=== PATIENT | female | born 1995 | race Caucasian/White ===

== ENCOUNTER → 2021-02-28 15:05 | Outpatient (CLI) | payer OTHER, SELFPAY ==
--- NOTE | ~2021-02-28 | US_ITS ---
EXAMINATION: US transvaginal DATE: 02/28/2021 15:26 INDICATION: Vaginal spotting Comparison:No prior studies for comparison. TECHNIQUE: Multiple endovaginal sonographic images of the pelvis performed. FINDINGS: The uterus measures 6.1 x 3.3 x 3.1 cm. The endometrial complex measures 4.9 mm. The right ovary measures 1.3 x 1.2 x 1.1 cm and the left ovary measures 6.2 x 5 x 7 cm. There is a 5. 7 x 6.4 x 4.5 cm left ovarian cyst. There are small follicles in each ovary. Normal doppler signal in both ovaries. There is no free fluid in the pelvis. There are no abnormal masses seen on either side. IMPRESSION: 1. Left ovarian cyst measuring 6.4 cm. Reviewed, dictated and finalized at location B.
== END ==
PROVIDERS: Visit Provider Nurse Practitioner
DX: N93.8 Other specified abnormal uterine and vaginal bleeding (principal); N83.202 Unspecified ovarian cyst, left side
CPT/HCPCS: 76830

== ENCOUNTER 2021-04-12 14:48 | Outpatient (CLI) | payer OTHER, SELFPAY ==
--- NOTE | ~2021-04-12 | US_ITS ---
EXAMINATION: US transvaginal EXAM DATE: 04/12/2021 15:14 INDICATION: Left ovarian cyst . TECHNIQUE: Pelvic transvaginal sonogram was performed. There are multiple grayscale and Doppler imag es available for interpretation. Comparison is made to prior examination from 02/28/2021. FINDINGS: Uterus measures 5.8 x 3.5 x 3.5 cm, and is morphologically normal. Endometrial stripe lamberto sures 5 mm, within normal limits. There is no free pelvic fluid. Right adnexa: The ovary measures 2.2 x 2.0 x 2.5 cm and is morphologically normal. Ovarian vascular f low confirmed. Left adnexa: The ovary measures 6.5 x 4.6 x 7.0 cm, with an anechoic simple cystic-appearing lesion m easuring 5.7 x 4.1 x 6.2 cm, could be the same lesion on prior examination in February. Typically physio logic or hemorrhagic cyst would have involuted. No complexity to suggest malignancy, or internal inte rnal debris typically seen with endometrioma, or fishnet septae typically seen with hemorrhagic cyst. If this persists, could be peritoneal inclusion cyst, but can't exclude benign ovarian neoplasm. Con assistant professor of german additional 6 week follow-up pelvic sonogram. Ovarian vascular flow confirmed. IMPRESSION: Persistent simple cystic appearing left ovarian lesion; consider additional 6 week follow -up pelvic sonogram. Reviewed, dictated and finalized at location A. IMPRESSION: Persistent simple cystic appearing left ovarian lesion; consider ad ditional 6 week follow-up pelvic sonogram.
== END 2021-04-12 14:49 ==
PROVIDERS: Visit Provider Obstetrics & Gynecology Gynecology
DX: N83.202 Unspecified ovarian cyst, left side (principal)
CPT/HCPCS: 76830

== ENCOUNTER 2022-03-02 13:49 | Outpatient (CLI) | payer OTHER, SELFPAY ==
--- NOTE | ~2022-03-02 | US_ITS ---
EXAMINATION: US transvaginal DATE: 03/02/2022 14:24 INDICATION: Ovarian cyst TECHNIQUE: Multiple endovaginal sonographic images of the pelvis were obtained. COMPARISON: None. FINDINGS: The uterus measures 6.2 x 3.5 x 3.6 cm. The endometrial complex measures 5 mm. The right ov burke is not visualized however no right adnexal abnormality is seen. The left ovary measures 3.2 x 2.6 x 2.8 cm. There is a 7.2 x 4.0 x 5.5 cm simple cystic lesion of the left adnexa without significant change. There is normal vascular flow in the left ovary. There is no free fluid in the pelvis. IMPRESSION: 1. 7.2 cm left adnexal cyst without significant change. Reviewed, dictated and finalized at location F.
== END 2022-03-02 13:50 ==
PROVIDERS: PCP Nurse Practitioner; Visit Provider Nurse Practitioner
DX: N83.202 Unspecified ovarian cyst, left side (principal)
CPT/HCPCS: 76830

== ENCOUNTER 2022-07-03 12:54 | Outpatient (CLI) | payer OTHER, SELFPAY ==
--- NOTE | ~2022-07-03 | US_ITS ---
EXAMINATION: US transvaginal DATE: 07/03/2022 13:18 INDICATION: Ovarian cyst. TECHNIQUE: Multiple transvaginal sonographic images of the pelvis were obtained. COMPARISON: None. FINDINGS: The uterus measures 6.4 x 3.5 x 4.6 cm. There is no free fluid in the pelvis. The endometrial complex measures 4 mm in thickness. The right ovary measures 3.1 x 2.2 x 3.0 cm. The left ovary measures 2.5 x 2.1 x 2.4 cm. There is a cystic mass in the left adnexa measuring 6.3 x 5.6 x 3.8 cm with peripher al 7 mm nodule without internal vascular flow. IMPRESSION: 1. 6.3 cm cystic mass with peripheral 7 mm nodule in the left adnexa suspicious for neoplasm. Conside r surgical evaluation. Reviewed, dictated and finalized at location A. IMPRESSION: 1. 6.3 cm cystic mass with peripheral 7 mm nodule in the left adnexa suspicious for neoplasm. Consider surgical evaluation.
== END 2022-07-03 12:55 ==
PROVIDERS: PCP Obstetrics & Gynecology Gynecology; Visit Provider Obstetrics & Gynecology Gynecology
DX: N83.209 Unspecified ovarian cyst, unspecified side (principal)
CPT/HCPCS: 76830

== ENCOUNTER 2022-07-24 01:26 | Day surgery (SDC) | payer OTHER, SELFPAY ==
[2022-07-19 14:05] VITALS: BMI 44.0
--- NOTE | 2022-07-19 14:24 | PC.NURSE ---
Report to the Outpatient Waiting Room, entrance under the green pavilion located off [facility], at time _0830__ on date _07/24/22_. OR Time: _1030 . Time changes happen often and if your time is changed the preop area will call you the afternoon before. - You and your visitor will be asked to self-screen and do not enter if you have any COVID symptoms. - Only one visitor and NO children visitors are allowed at this time. - The patient visitor is requested to leave or wait in car when not with patient due to restrictions. - A mask is required within the hospital. Patients may have clear liquids (water, carbonated beverages, clear teas, apple juice) until 3 hours prior to surgery with a maximum of 20 ounces. - No food from midnight until time of surgery - Take the following medications with a SIP of water the morning of surgery: WELLBUTRIN Medications to discontinue per physician N/A Date to take last dose___N/A Please no make-up, nail serbian, hairspray, perfume, deodorant, or body powder the day of surgery. No jewelry (including any body piercings) or valuables the day of surgery, leave them at home. Please take a shower or bath the night before, or the morning of, surgery with an antibacterial soap. Wear comfortable, loose fitting clothing. - Jewelry must be removed prior to entering the operating room. Rings and piercings that are not removed may be cut off. - The hospital will not accept responsibility for valuables. - Please leave all valuables, including medications, at home the day of surgery. If you are going home after surgery, a licensed utility driver must drive you home. - NO public transportation without another adult. - We recommend that an adult stay with you for 24 hours following discharge. - We also recommend that you do not drive, make important decision, drink alcoholic beverages, or take any drugs that were not prescribed by your health care provider for at least 24 hours after your discharge time. Follow any additional instructions given to you from your surgeon. If you or anyone in your household have experienced Covid symptoms in the past week, please notify your surgeon or the nurse liaison at the phone number below for possible testing. Telephone instructions given to __EMETERIOE and asked if any additional questions and then verbalized understanding. Patient advised to call surgeon office or pre surgery nurse liaison [phone] if any additional questions.
[2022-07-24] VITALS (8 sets, daily range): BP systolic 115–136; BP diastolic 62–81; PULSE 75–112; RESP 16–20; TEMP 36.4–37.1; O2SAT 98–100; BMI 49.5
--- NOTE | 2022-07-24 07:28 | P.HP_ITS ---
History of Present Illness History of Present Illness Consent: Risks, benefits, and alternatives have been discussed and questions answered. Patient agrees to proceed with procedure. Chief complaint: Lt Ovarian Persistant Cyst Narrative: Emmie Rocha is a 27 year old female with a persistent large left ovarian cyst. Initial ultrasound February of 2021 showed a 6.4cm simple ovarian cyst. This has been followed over time and remained 6cm. There was a new finding on the June 26 ultrasound showing a peripheral nodule measuring 7mm. Tumor markers CA 125, CA 19-9, and CEA are all normal. Options were reviewed with the patient and she has elected to proceed with laparoscopic management. The plan is to proceed with laparoscopic evaluation and then determine further plan. Possible incision and drainage, wall biopsy, cystectomy, or salpingo-oophorecto my. Patient voices understanding and agrees to proceed. Risks of infection, bleeding, injury to internal organs, and general anesthesia reviewed. Possible pathology was also discussed. Review of Systems Review of Systems: not repeated day of surgery; patient states no changes in status PMFSH Past Medical History Medical History (Updated 07/24/22 @ 07:33 by Rosario Middleton MD) Anxiety Depression Social History Social History Substance use: never Substance use type: marijuana Living arrangements: alone Spiritual care concerns: No Meds Home Medications and Allergies Home Medications Medication Instructions Recorded Confirmed Type Control Pill 1 tab-cap PO DAILY 07/19/22 07/19/22 History bupropion HCl 150 mg 24 hr tablet, 150 mg PO DAILY 07/19/22 07/19/22 History extended release escitalopram oxalate 20 mg tablet 20 mg PO DAILY 07/19/22 07/19/22 History hydroxyzine pamoate 25 mg capsule 25 mg PO DAILY 07/19/22 07/19/22 History Allergies Allergy/AdvReac Type Severity Reaction Status Date / Time No Known Allergies Allergy Unverified 07/19/22 14:21 Exam Const: General: healthy appearing and alert Orientation/consciousness: p atient oriented x3 Resp: Effort & Inspection: normal respiratory effort GI: GI Palp: Yes Soft to palpation, No Tenderness to palpation present (GI) and No Palpable mass present : External Female Exam: normal external appearance Speculum Exam - Vagina: normal appearance of the vagina and normal vaginal discharge Speculum Exam - Cervix: normal appearance of the cervix Bimanual exam- vagina & uterus: uterine size normal and consistency normal Bimanual Exam- Adnexa, other: tender (Mild left tenderness) Neuro: General: patient oriented x3 Assessment and Plan Assessment and plan (1) Left ovarian cyst: Code(s): N83.202 - Unspecified ovarian cyst, left side Status: Acute Assessment and Plan: Plan to proceed with laparoscopic management
--- NOTE | 2022-07-24 07:28 | WPDHPUPDATE1 ---
History and Physical Update Update Date/Time: 07/24/22 07:28 History and Physical has been reviewed, including an updated exam of the patient. There are NO changes in the patient's condition. Risks, benefits, and alternatives have been discussed and questions answered. Patient agrees to proceed with procedure.
[2022-07-24] MEDS: LACTATED RINGERS 1,000 ML 30 ML IV CONT (08:55)
[2022-07-24] MEDS: ACETAMINOPHEN 500 MG TABLET 1000 MG PO (09:01)
[2022-07-24] MEDS: KETOROLAC 15 MG/ML VIAL (*BKC) IV PUSH (09:02)
--- NOTE | 2022-07-24 09:26 | P.PNAN_ITS ---
Anes - Initial Pre Proc Eval Procedure: Operation Date: 07/24/22 10:30 Proposed Procedures p Laparoscopic Management Left Ovarian Cyst, Possible Left Salpingo-oophorectomy - Rosario Middleton MD Date/Time: 07/24/22 09:26 Surgeon: Rosario Middleton MD Pre Op Diagnosis: Lt Ovarian Persistant Cyst Patient Data Age: 27 Gender: F Height: 1.65 m Weight: 135 kg Last Vital Signs Temp 37.1 C 07/24/22 08:30 Pulse 91 07/24/22 08:30 Resp 16 07/24/22 08:30 BP 136/81 07/24/22 08:30 Pulse Ox 100 07/24/22 08:30 O2 Del Method Room Air 07/24/22 08:30 Allergies Allergy/AdvReac Type Severity Reaction Status Date / Time No Known Allergies Allergy Verified 07/24/22 08:36 Home Medications Medication Instructions Recorded Confirmed Type Control Pill 1 tab-cap PO DAILY 07/19/22 07/19/22 History bupropion HCl 150 mg 24 hr tablet, 150 mg PO DAILY 07/19/22 07/24/22 History extended release escitalopram oxalate 20 mg tablet 20 mg PO DAILY 07/19/22 07/19/22 History hydroxyzine pamoate 25 mg capsule 25 mg PO DAILY 07/19/22 07/19/22 History Patient hx anesthesia problems: none Family hx anesthesia problems: none Results Review: All pre-operative results and documents have been reviewed as part of the pre- operative evaluation. [facility] Past Medical History Medical History (Updated 07/24/22 @ 09:27 by Fernie Angeles MD) Anxiety Depression Morbid obesity Ovarian cyst Social History Social History Substance use: never Substance use type: marijuana Living arrangements: alone Spiritual care concerns: No Anes - Eval Final PreProcedure Day of Procedure 07/24/22 09:26 Patient weight: morbidly obese Heart: regular rate and rhythm Lungs: clear to auscultation Neurological: alert and oriented Last oral intake: >/= 8 hours ASA classification: III Emergent: no Anesthetic plan: proceed Anesthesia type and monitoring: general ETT and standard monitoring Results Review: All pre-operative results and documents have been reviewed as part of the pre- operative evaluation. Informed Consent: The patient's anesthetic plan and its attendant risks and benefits were discussed with the patient/family/POA. Questions were solicited and answers provided to the satisfaction of the patient/family/POA.
--- NOTE | 2022-07-24 10:55 | W.PM.PROC2 ---
Procedure Note - Detailed Date of Procedure 07/24/22 Pre-op Diagnosis Lt Ovarian Persistant Cyst Post-op Diagnosis Other (7Cm left tubal cyst) Procedure Performed laparoscopic incision and drainage of left tubal cyst with biopsy of cyst wall Surgeon Rosario Middleton MD Anesthesia General Findings normal-appearing uterus, ovaries, and right tube; left tube stretched and very adherent to the left tubal cyst; cyst containing straw-colored fluid Description of Procedure The patient was taken to the operating room and placed under anesthesia in the dorsal lithotomy position. She was prepped and draped in the usual sterile fashion. [place] speculum was placed in the vagina and the cervix grasped on the anterior lip with a tenaculum. The acorn manipulator was placed and the speculum removed. Bladder previously drained by the staff. attention is then turned to the abdomen where a vertical skin incision was made at the base of the umbilicus. The abdomen is tented and the Veress needle placed. Water drop test is normal and opening patient pressure was 4mmHg. The pneumoperitoneum was obtained using CO2 to a patient pressure of 15. The Veress needle was removed and the long 5mm trocar was placed. Intra-abdominal placement was confirmed with the laparoscope. The patient is placed in Trendelenburg and a 5mm skin incision made above the symphysis pubis in the midline. A 5mm trocar is placed. The blunt probe was used to investigate the pelvis with the above-stated findings. Due to the very stretched and densely adherent nature of the left tube, decision was made to incise and drain the cyst and remove a piece of the wall to attempt to retain tubal function. A 2nd 5mm trocar is placed in the right lower quadrant under direct visualization. The atraumatic grasper is used to hold the cyst in place. The LigaSure hook is used to enter the cyst on the opposite side of the tube. The cyst is drained of clear fluid. The incision was extended approximately 5cm. A [id number] sqare of the cyst wall is excised using the LigaSure device. Good hemostasis is noted. The clear fluid is removed from the cul-de-sac using manual suction device. The instruments are removed and the pneumoperitoneum was reduced. Skin incisions were closed using 4 0 nylon in interrupted fashion. Sponge, needle, and instrument counts are correct per the OR staff. The patient is awakened from anesthesia and taken to recovery in stable condition. Estimated Blood Loss 5 Drains No Packing No Pathology Yes ( Tubal cyst wall biopsy) Complications No immediate complications Condition Stable Disposition PACU
[2022-07-24] MEDS: fentaNYL CITRATE INJ (*CRX) 100 MCG/2 ML VIAL 25 MCG IV PUSH ×4 (11:27→11:57)
[2022-07-24] MEDS: oxyCODONE HCL (*CRX) 5 MG TAB IR PO (12:30)
== END 2022-07-24 12:45 | disposition home or self-care (01) ==
PROVIDERS: Visit Provider Obstetrics & Gynecology Gynecology
PROC: (CPT 49320; principal; 2022-07-24 10:30)
DX: N83.8 Other noninflammatory disorders of ovary, fallopian tube and broad ligament (principal); F41.9 Anxiety disorder, unspecified; F32.A Depression, unspecified; E66.01 Morbid (severe) obesity due to excess calories; Z68.42 Body mass index [BMI] 45.0-49.9, adult; F12.90 Cannabis use, unspecified, uncomplicated
CPT/HCPCS: 58662; 88305; A9270; J0330; J1100; J1885; J2250; J2405; J2704; J3010; J7030; J7120

== ENCOUNTER 2023-03-27 14:22 | Outpatient (CLI) | payer OTHER, SELFPAY ==
--- NOTE | ~2023-03-27 | US_ITS ---
EXAMINATION: US OB transvaginal DATE: 03/27/2023 14:55 INDICATION: Uncertain gestational dates. TECHNIQUE: Real-time transvaginal obstetric ultrasound. FINDINGS: No prior studies for comparison. The uterus measures 7.2 x 4.4 x 4.7 cm. There is an intrauterine gestational sac. No pole or yo lk sac. Right ovary measures 3.9 x 3.5 x 5.7 cm and contains a 3.9 cm corpus luteal cyst. There is a left ovarian/paraovarian cyst measuring 4.4 cm. No free fluid in the pelvis. Left ovary measures 2.8 x 2.6 x 2.3 cm. IMPRESSION: 1. Intrauterine gestational sac measuring 8 mm, too small to estimate gestational dates. No associate d pole or yolk sac due to early gestational age. Recommend follow-up with serial quantitative b eta-hCG levels and ultrasound as clinically indicated. 2: Chronic left ovarian/paraovarian 4.4 cm cyst, slightly decreased in size compared with prior stud y. 3: Corpus luteal cyst of the right ovary measuring 3.9 cm. Reviewed, dictated and finalized at location B. IMPRESSION: 1. Intrauterine gestational sac measuring 8 mm, too small to estimate gestation al dates. No associated pole or yolk sac due to early gestational age. Re commend follow-up with serial quantitative beta-hCG levels and ultrasound as cl inically indicated. 2: Chronic left ovarian/paraovarian 4.4 cm cyst, slightly decreased in size co mpared with prior study. 3: Corpus luteal cyst of the right ovary measuring 3.9 cm.
== END 2023-03-27 14:23 ==
PROVIDERS: PCP Advanced Practice Midwife; Visit Provider Advanced Practice Midwife
DX: Z36.87 Encounter for antenatal screening for uncertain dates (principal); Z3A.00 Weeks of gestation of pregnancy not specified; N83.202 Unspecified ovarian cyst, left side
CPT/HCPCS: 76817

== ENCOUNTER 2023-04-12 11:17 | Outpatient (CLI) | payer OTHER, SELFPAY ==
--- NOTE | ~2023-04-12 | US_ITS ---
Pelvic ultrasound. Clinical History: First trimester , evaluate for viability Technique: Realtime transabdominal and transvaginal scanning of the pelvis was performed. Color flow Doppler and Doppler spectral analysis were performed. Findings: The uterus is anteverted, and contains an intrauterine gestation. With crown-rump length of 1.4 cm corresponds to an estimated gestational age of 7 weeks 4 days. Yolk sac also present. h eart rate is 162 bpm. The right ovary it is not visualized. No significant right ovarian or adnexal mass is seen. There is a 5.0 x 2.6 x 4.4 cm cystic mass in the left adnexal region. Left ovary is probably separate , poorly imaged, measuring approximately 3.1 x 2.5 x 2.9 cm. There is no evidence of free fluid in the cul de sac. Impression: Live intrauterine gestation with estimated gestational age of 7 weeks 4 days. heart rate is 162 bpm. Sonographic SIMI is 11/25/2023. 5.0 x 2.6 x 4.4 cm left adnexal cyst, possibly paraovarian cyst. Reviewed, dictated and finalized at location . Impression: Live intrauterine gestation with estimated gestational age of 7 weeks 4 days. F etal heart rate is 162 bpm. Sonographic SIMI is 11/25/2023. 5.0 x 2.6 x 4.4 cm left adnexal cyst, possibly paraovarian cyst.
== END 2023-04-12 11:18 ==
PROVIDERS: PCP Obstetrics & Gynecology Gynecology; Visit Provider Obstetrics & Gynecology Gynecology
DX: O36.80X0 Pregnancy with inconclusive fetal viability, not applicable or unspecified (principal); Z3A.00 Weeks of gestation of pregnancy not specified
CPT/HCPCS: 76817

== ENCOUNTER 2023-08-28 13:37 | Outpatient (CLI) | payer OTHER, SELFPAY ==
[2023-08-28 14:02] VITALS: BP 123/64; PULSE 102
--- NOTE | 2023-08-28 15:30 | PC.NURSE ---
Called Dr. Middleton with pt status. Informed of occasional variable decelerations noted on tracing. Otherwise reactive at 29 weeks. ROM plus negative. May D/C home.
== END 2023-08-28 15:40 | disposition home or self-care (01) ==
LOC: ANHOBOP 13:45 → ANHLDR 13:49
PROVIDERS: Visit Provider Obstetrics & Gynecology Gynecology
DX: O42.90 Premature rupture of membranes, unspecified as to length of time between rupture and onset of labor, unspecified weeks of gestation (principal); Z3A.00 Weeks of gestation of pregnancy not specified
CPT/HCPCS: 59025; 84112; 99199

== ENCOUNTER 2023-10-11 09:53 | Outpatient (CLI) | payer OTHER, SELFPAY ==
[2023-10-11] VITALS (10 sets, daily range): BP systolic 114–147; BP diastolic 68–126; PULSE 84–98
[2023-10-11 11:53] LABS: Basophils Percent Auto 0.4 % (0.2-1.2); Eosinophils Percent Auto 0.4 % (0-4.4); Hematocrit 31.5 % (37.0-47.0); Hemoglobin 10.4 g/dL (12.0-15.0); Immature Granulocyte Absolute 0.05 K/mm3 (0.00-0.031); Immature Granulocyte Percent A 0.6 % (0-0.5); Lymphocytes Absolute Auto 1.21 K/mm3 (0.9-3.2); Lymphocytes Percent Auto 14.2 % (18.3-44.2); Mean Corpuscular Hemoglobin 27.6 pg (26-34); Mean Corpuscular Volume 83.6 fl (80-100); Mean Platelet Volume 10.1 fl (7.4-10.4); Monocytes Absolute Auto 0.6 K/mm3 (0.1-0.6); Monocytes Percent Auto 7.5 % (2.6-8.5); Neutrophils Absolute Auto 6.6 K/mm3 (1.3-6.7); Neutrophils Percent Auto 76.9 % (45.5-73.1); Platelet Count Result 295 k/mm3 (150-375); Red Blood Count 3.77 M/mm3 (4.2-5.4); Red Cell Distribution Width 15.4 % (11.5-14.5); White Blood Count 8.5 K/mm3 (4.5-10.0)
[2023-10-11 12:06] LABS: Alanine Aminotransferase 19 U/L (6-35); Albumin Level 3.1 g/dL (3.5-5.1); Alkaline Phosphatase 214 U/L (38-126); Anion Gap 7 mmol/L (8-16); Aspartate Amino Transferase 34 U/L (14-36); Bilirubin,Total 0.3 mg/dL (0.2-1.3); Blood Urea Nitrogen 7 mg/dL (7-17); Calcium 9.1 mg/dL (8.4-10.2); Carbon Dioxide 20 mmol/L (22-30); Chloride 107 mmol/L (98-107); Estimated Glomerular Filt Rate > 60; Glucose 86 mg/dL (65-110); Potassium 3.6 mmol/L (3.4-5.0); Sodium 134 mmol/L (137-145); Uric Acid 4.9 mg/dL (2.5-7.5)
[2023-10-11 12:09] LABS: Appearance Urine Turbid (Clear); Bilirubin Urine Negative (Negative); Blood Urine Trace (Negative); Color Urine Yellow (Yellow); Glucose Urine UA Negative (Negative); Ketones Urine Negative (Negative); Leukocyte Esterase Ur Trace LEU/UL (NEGATIVE); Need Manual Microscopic Reviewed; Nitrate Urine Negative (Negative); Non Pathogenic Casts 0-2; Protein Urine 2+ mg/dL (Negative); RBC Urine 0-2 /hpf (0-2); Squamous Epithelial Cell Urine Many /hpf (Few); Urobilinogen Urine 0.2 mg/dL (<2.0); WBC Urine 21-50 /hpf (0-3)
[2023-10-11 12:17] LABS: Add Urine Microscopic? YES
[2023-10-11 13:19] LABS: Creatinine Urine 83.9 mg/dL; Total Protein Urine Random 116 mg/dL; Ur Ttl Prot Creatinine Ratio 1.38 mg/mg (0-0.20)
--- NOTE | 2023-10-11 13:41 | PC.NURSE ---
1326--Reported labs and BP's to Dr. Middleton. DC orders given
--- NOTE | 2023-10-11 14:36 | PC.NURSE ---
1320--Pt denies headache, blurred vision, RUQ pain or excessive swelling. Precautions given.
== END 2023-10-11 13:35 | disposition home or self-care (01) ==
LOC: ANHOBOP 09:58 → ANHOBPP 09:59
PROVIDERS: Visit Provider Obstetrics & Gynecology Gynecology
DX: O13.9 Gestational [pregnancy-induced] hypertension without significant proteinuria, unspecified trimester (principal); Z3A.00 Weeks of gestation of pregnancy not specified
CPT/HCPCS: 36415; 59025; 80053; 81001; 82570; 84156; 84550; 85025; 87086; 87088; 99199

== ENCOUNTER 2023-10-12 16:53 | Outpatient (CLI) | payer OTHER, SELFPAY ==
[2023-10-12 17:12] VITALS: BP 144/112; PULSE 111
[2023-10-12 17:23] LABS: Basophils Percent Auto 0.4 % (0.2-1.2); Eosinophils Percent Auto 0.4 % (0-4.4); Hematocrit 33.6 % (37.0-47.0); Hemoglobin 10.8 g/dL (12.0-15.0); Immature Granulocyte Absolute 0.06 K/mm3 (0.00-0.031); Immature Granulocyte Percent A 0.7 % (0-0.5); Lymphocytes Absolute Auto 1.44 K/mm3 (0.9-3.2); Lymphocytes Percent Auto 17.5 % (18.3-44.2); Mean Corpuscular HGB Conc 32.1 g/dl (32-36); Mean Corpuscular Hemoglobin 27.6 pg (26-34); Mean Corpuscular Volume 85.9 fl (80-100); Mean Platelet Volume 10.1 fl (7.4-10.4); Monocytes Absolute Auto 0.5 K/mm3 (0.1-0.6); Monocytes Percent Auto 6.1 % (2.6-8.5); Neutrophils Absolute Auto 6.2 K/mm3 (1.3-6.7); Neutrophils Percent Auto 74.9 % (45.5-73.1); Platelet Count Result 347 k/mm3 (150-375); Red Blood Count 3.91 M/mm3 (4.2-5.4); Red Cell Distribution Width 15.6 % (11.5-14.5); White Blood Count 8.2 K/mm3 (4.5-10.0)
[2023-10-12 17:31] VITALS: BP 144/99; PULSE 94; BMI 45.8
[2023-10-12 17:47] LABS: Creatinine Urine 72.6 mg/dL; Total Protein Urine Random 117 mg/dL; Ur Ttl Prot Creatinine Ratio 1.61 mg/mg (0-0.20)
[2023-10-12 17:58] VITALS: BP 137/92; PULSE 91
--- NOTE | 2023-10-12 18:02 | P.PNOB_ITS ---
OB - Triage/Final Diagnosis Visit Information Date of evaluation: 10/12/23 Reason for evaluation: other (elevated blood pressure, preeclampsia ) Comments/Additional reasons for admission: I have assessed the risk for this patient, Emmie Rocha, and determined that she would benefit from observation care. Evaluation Laboratory results: Laboratory Tests 10/12/23 17:09 WBC 8.2 RBC 3.91 L Hgb 10.8 L Hct 33.6 L MCV 85.9 MCH 27.6 MCHC 32.1 RDW 15.6 H Plt Count 347 MPV 10.1 Immature Gran % (Auto) 0.7 H Neut % (Auto) 74.9 H Lymph % (Auto) 17.5 L [place] % (Auto) 6.1 Eos % (Auto) 0.4 Baso % (Auto) 0.4 Lymph # (Auto) 1.44 [place] # (Auto) 0.5 Eos # (Auto) 0.0 Baso # (Auto) 0.0 Abs Immat Gran (auto) 0.06 H Absolute Neuts (auto) 6.2 Absolute Nucleated RBC 0.0 Nucleated RBC % 0.0 U Random Total Protein 117 Urine Creatinine 72.6 Protein/Creat Ratio 2 1.61 H Vital signs: Vital Signs - 24 hr 10/12/23 17:12 10/12/23 17:31 10/12/23 17:58 Pulse Rate 111 H 94 91 Blood Pressure 144/112 H 144/99 H 137/92 H
[2023-10-12 18:11] LABS: Appearance Urine Cloudy (Clear); Bacteria Urine 2+ /hpf; Bilirubin Urine Negative (Negative); Blood Urine Trace (Negative); Color Urine Yellow (Yellow); Glucose Urine UA Negative (Negative); Ketones Urine Negative (Negative); Leukocyte Esterase Ur Trace LEU/UL (NEGATIVE); Need Manual Microscopic Reviewed; Nitrate Urine Negative (Negative); Non Pathogenic Casts 0-2; Protein Urine 2+ mg/dL (Negative); RBC Urine 0-2 /hpf (0-2); Specific Grav Ur 1.009 (1.001-1.035); Squamous Epithelial Cell Urine Many /hpf (Few); Urobilinogen Urine 0.2 mg/dL (<2.0); pH Urine 7.5 (5.0-9.0)
[2023-10-12 18:12] LABS: Add Urine Microscopic? YES
[2023-10-12 18:14] VITALS: BP 144/99; PULSE 94
--- NOTE | 2023-10-12 18:19 | PC.NURSE ---
1653: Patient has diagnosed Pre-E, and gestational diabetes on insulin and is currently on bedrest. Patient called doctors office while at home due to having high blood pressure at home (162/115 and 156/103) taken 15 min apart from each other. The doctors office told patient to come into the hospital. Patient states she is not having any symptoms and feels occasional contractions. Patient states she is not on any blood pressure medications and she sees MFM at [facility]. 1730: Dr. Wise on unit reviewing reactive NST, patient's blood pressures and lab results. Dr. Wise aware lab lost CMP. Orders to not re-draw CMP at this time. 1740: Dr. Wise at bedside talking to patient. Orders to discharge patient home with instructions to continue bedrest and keep NST appointment for Sunday.
== END 2023-10-12 18:10 | disposition home or self-care (01) ==
LOC: ANHOBOP 16:58 → ANHLDR 17:00
PROVIDERS: Student in an Organized Health Care Education/Training Program; Visit Provider Obstetrics & Gynecology Gynecology
DX: O13.9 Gestational [pregnancy-induced] hypertension without significant proteinuria, unspecified trimester (principal); Z3A.00 Weeks of gestation of pregnancy not specified
CPT/HCPCS: 36415; 59025; 81001; 82570; 84156; 85025; 87086; 87088; 99199

== ENCOUNTER 2023-10-15 11:18 | Outpatient (CLI) | payer OTHER, SELFPAY ==
[2023-10-15 11:46] VITALS: BP 149/99; PULSE 97
[2023-10-15 12:01] VITALS: BP 144/99; PULSE 98
[2023-10-15 12:08] LABS: Basophils Percent Auto 0.4 % (0.2-1.2); Eosinophils Absolute Auto 0.1 K/mm3 (0-0.3); Eosinophils Percent Auto 0.5 % (0-4.4); Immature Granulocyte Absolute 0.09 K/mm3 (0.00-0.031); Immature Granulocyte Percent A 0.9 % (0-0.5); Lymphocytes Absolute Auto 1.39 K/mm3 (0.9-3.2); Lymphocytes Percent Auto 13.7 % (18.3-44.2); Mean Corpuscular HGB Conc 32.4 g/dl (32-36); Mean Corpuscular Hemoglobin 27.4 pg (26-34); Mean Corpuscular Volume 84.8 fl (80-100); Monocytes Absolute Auto 0.5 K/mm3 (0.1-0.6); Monocytes Percent Auto 5.3 % (2.6-8.5); Neutrophils Percent Auto 79.2 % (45.5-73.1); Platelet Count Result 324 k/mm3 (150-375); Red Blood Count 4.01 M/mm3 (4.2-5.4); Red Cell Distribution Width 15.4 % (11.5-14.5); White Blood Count 10.1 K/mm3 (4.5-10.0)
[2023-10-15 12:16] VITALS: BP 145/97; PULSE 97
[2023-10-15 12:18] LABS: Alanine Aminotransferase 16 U/L (6-35); Albumin Level 3.4 g/dL (3.5-5.1); Alkaline Phosphatase 253 U/L (38-126); Anion Gap 7 mmol/L (8-16); Aspartate Amino Transferase 21 U/L (14-36); Bilirubin,Total 0.4 mg/dL (0.2-1.3); Blood Urea Nitrogen 8 mg/dL (7-17); Calcium 9.4 mg/dL (8.4-10.2); Carbon Dioxide 18 mmol/L (22-30); Chloride 108 mmol/L (98-107); Estimated Glomerular Filt Rate > 60; Glucose 102 mg/dL (65-110); Sodium 133 mmol/L (137-145)
[2023-10-15 12:26] LABS: Appearance Urine Cloudy (Clear); Bacteria Urine Rare /hpf; Bilirubin Urine Negative (Negative); Blood Urine Negative (Negative); Color Urine Yellow (Yellow); Glucose Urine UA Negative (Negative); Ketones Urine Negative (Negative); Leukocyte Esterase Ur Negative LEU/UL (NEGATIVE); Nitrate Urine Negative (Negative); Non Pathogenic Casts 0-2; Protein Urine 2+ mg/dL (Negative); RBC Urine 0-2 /hpf (0-2); Specific Grav Ur 1.012 (1.001-1.035); Squamous Epithelial Cell Urine Moderate /hpf (Few); Urobilinogen Urine 0.2 mg/dL (<2.0)
[2023-10-15 12:31] VITALS: BP 139/92; PULSE 94
[2023-10-15 12:36] LABS: Creatinine Urine 73.7 mg/dL; Total Protein Urine Random 131 mg/dL; Ur Ttl Prot Creatinine Ratio 1.78 mg/mg (0-0.20)
[2023-10-15 12:40] LABS: Add Urine Microscopic? YES
[2023-10-15 12:45] VITALS: BP 149/99; PULSE 96
--- NOTE | 2023-10-15 13:35 | PC.NURSE ---
Karie Vazquez notified of BP's, lab results and variable decel, orders received for procardia 30xl PO daily and patient to start today, and to follow up with office on for a BP check.
== END 2023-10-15 12:45 | disposition home or self-care (01) ==
LOC: ANHOBOP 11:24 → ANHOBPP 11:24
PROVIDERS: Advanced Practice Midwife; Visit Provider Obstetrics & Gynecology Gynecology
DX: O13.9 Gestational [pregnancy-induced] hypertension without significant proteinuria, unspecified trimester (principal); Z3A.00 Weeks of gestation of pregnancy not specified
CPT/HCPCS: 36415; 59025; 80053; 81001; 82570; 84156; 85025; 99199

== ENCOUNTER 2023-10-31 01:40 | Emergency (ER) | payer OTHER, SELFPAY ==
[2023-10-31 01:59] VITALS: BP 137/92; PULSE 89; RESP 20; TEMP 36.5; O2SAT 100
--- NOTE | 2023-10-31 02:40 | PC.NURSE ---
Pt to triage desk and states she is going to go home, her pain is gone. Pt ambulated out of ED with steady gait, in no obvious distress.
== END 2023-10-31 05:43 | disposition left against medical advice (07) ==
LOC: ANHED 02:44
DX: M54.50 Low back pain, unspecified (principal)
CPT/HCPCS: 99199